=== PATIENT | female | born 1975 | race Caucasian/White ===

== ENCOUNTER 2017-01-16 07:01 | Inpatient (IN) ==
[2017-01-16] MEDS ORDERED: 0.9 % Sodium Chloride 1,000 ML IVC ONE (07:49)
--- NOTE | 2017-01-16 08:05 | Emergency Department Note ---
Disposition Clinical Impression: Dysfunctional uterine bleeding, Vaginal bleeding Anemia Qualifiers: Anemia type: other cause Other causes of anemia: acute posthemorrhagic Qualified Code(s): D62 - Acute posthemorrhagic anemia Uterine fibroid Qualifiers: Uterine leiomyoma location: unspecified location Qualified Code(s): D25.9 - Leiomyoma of uterus, unspecified Disposition: Admitted As Inpatient Condition: Fair Referrals: Rebel Stoner DO [Family Provider] - Forms: ED Satisfaction Letter Female Urogenital HPI - General Chief complaint: ED Vaginal Bleeding Stated complaint: Weak, period isn't normal Time Seen by Provider: 01/16/17 07:13 Source: patient, EMS Mode of arrival: EMS Limitations: no limitations Nursing Notes Reviewed: Yes Vital Signs Reviewed: Yes - History of Present Illness Pt Subjective Complaint: vaginal bleeding ("Heavy for 11 days"), other (" Feeling weak all over since last night") Onset (ago): day(s) (11) Location: other (no pain) Radiation: non-radiating Severity: none Severity scale (1-10): 0 Improves with: none Worsens with: none Urinary Symptoms: no dysuria, no urgency, no frequency, no hematuria, no foul smelling urine, no difficulty urinating, no flank pain Vaginal discharge: blood, dark blood, blood clots Sexual activity: no : no Associated symptoms: Reports: abnormal vaginal bleeding, weakness. Denies: abdominal pain, nausea/vomiting, fever/chills, headaches, loss of appetite, , rash, seizure, shortness of breath, syncope - Related Data Home Medications Medication Instructions Recorded Confirmed Montelukast [Singulair] 10 mg PO DAILY 01/16/17 01/16/17 methIMAzole [Tapazole] 5 mg PO TID 01/16/17 01/16/17 Allergies Allergy/AdvReac Type Severity Reaction Status Date / Time No Known Allergies Allergy Verified 01/16/17 07:02 All systems ED: reviewed and negative except as stated. Review of Systems: As Per HPI Constitutional: Reports: as per HPI, weakness. Denies: fever, chills Eyes: Denies: vision change Cardiovascular: Denies: chest pain, palpitations, dyspnea on exertion, orthopnea , edema, syncope Respiratory: Denies: dyspnea Gastrointestinal: Denies: abdominal pain, nausea, vomiting, diarrhea, constipation Genitourinary: Denies: urgency, dysuria, frequency, hematuria Musculoskeletal: Denies: back pain Integumentary: Denies: rash Neurological: Denies: headache, weakness, numbness, paresthesias, confusion, abnormal gait, vertigo Endocrine: Reports: as per HPI, fatigue Hematological/Lymphatic: Denies: easy bleeding, easy bruising Past Medical History - Past Medical History Attestation: Yes The following information was validated with the patient. 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 Absent: scleral icterus, conjunctival injection, nystagmus, miosis, mydriasis, periorbital swelling - ENT ENT exam: normal exam, normal oropharynx, mucous membranes moist - Neck Neck exam: Present: normal inspection, full ROM, trachea midline. Absent: meningismus - Chest Chest inspection: Present: normal inspection - Respiratory Respiratory exam: Present: normal lung sounds bilaterally. Absent: respiratory distress, wheezes, stridor - Cardiovascular Cardiovascular exam: Present: normal rhythm, tachycardia, normal heart sounds - Abdominal Exam Abdominal exam: Present: soft, Non-Tender. Absent: distention, guarding, rebound, mass - Female Supervisor Landscape present during exam: Yes - Extremities Exam Extremities exam: Present: normal inspection. Absent: pedal edema - Back Exam Back exam: Present: normal inspection - Neurological Exam Neurological exam: Present: alert, oriented X3, CN II-XII intact - Psychiatric Psychiatric exam: Present: normal affect, normal mood - Skin Skin exam: Present: warm, dry, intact, normal color Course Course Narrative: Patient presents by squad for evaluation of generalized weakness and heavy vaginal bleeding for the past 11 days. She has not had menorrhagia in the past. She denies . She denies trauma or recent sexual activity. She has no pain and denies dizziness, lightheadedness, vertigo, syncope. She also denies chest pain, shortness of breath or dyspnea on exertion. She has been passing large clots and has had both dark red and bright red vaginal bleeding. Her only pelvic surgery was a bilateral tubal ligation several years ago. Labs have been ordered including a type and screen, IV fluids have also been ordered. Patient's current blood pressure is 129/80. Pelvic exam will be done once the IV is established. Vitals stable, patient with no complaints. Labs show anemia with H&H of six and 19. Two units of PRBCs have been ordered. Pelvic exam - a few quarter sized clots, and small amount of active bleeding. No sign of trauma. PLAYERS CLUB REPRESENTATIVE paged. Patient was able to go to ultrasound before the blood was ready. She is stable with a normal blood pressure and is not tachycardic. Patient has returned from ultrasound. The blood is now ready, transfusion will begin. Once the results of the ultrasound are available, Dr. Lei will be paged, as previously discussed. Dr. Lei has been paged. We are waiting to hear back from him. - Consultations Consultation #1: Case discussed with nurse independent living advisor Velvet Dale. She will confer with Dr. Lei and call us back. The nurse independent living advisor states that Dr. Lei. Once the patient to have a pelvic ultrasound done and then he would like a call back once this has been resulted. Order was placed in ultrasound was called to confirm it was the correct order. Also, to explain to them that the patient needs to remain nothing by mouth and this may result in her not having a full bladder. Time: 09:00 Consultation #2: Case discussed with Dr. Lei. He reviewed the U/S and lab findings, agrees with the PRBC infusion and will admit the patient. Time: 11:31 Vital Signs Temperature 98.2 F 01/16/17 07:03 Pulse Rate 110 01/16/17 07:03 Respiratory Rate 12 01/16/17 07:03 Blood Pressure 130/85 01/16/17 07:03 O2 Sat by Pulse Oximetry 100 01/16/17 07:03 Temperature 98.2 F 01/16/17 07:03 Pulse Rate 90 01/16/17 10:57 Respiratory Rate 14 01/16/17 10:57 Blood Pressure 106/71 01/16/17 10:57 O2 Sat by Pulse Oximetry 97 01/16/17 10:57 Oxygen Delivery Oxygen Delivery Room Air Urogenital-Female - Lab Data Result diagrams: 01/16/17 08:03 01/16/17 08:03 Lab Results 01/16/17 01/16/17 01/16/17 Range/Units 08:03 08:03 08:03 WBC 5.1 (4.3-11.1) K/mcL RBC 2.37 L (3.82-4.97) M/mcL Hgb 6.1 L (11.5-15.4) g/dL Hct 19.1 L (35.3-44.9) % MCV 80.6 L (83.0-100.0) fL MCH 25.7 L (28.0-33.3) pg MCHC 31.9 (31.6-35.5) g/dL RDW 12.8 (11.5-14.5) % Plt Count 339 (140-400) K/mcL MPV 9.6 (9.4-12.4) fL Immature Gran % 0.2 (0-4) % Seg Neutrophils % 75.9 % Lymphocytes % 17.6 % Monocytes % 5.1 % Eosinophils % 1.2 % Basophils % 0.0 % Neutrophils # 3.9 (1.6-8.9) K/mcL Lymphocytes # 0.9 (0.6-4.6) K/mcL Monocytes # 0.3 (0.0-1.3) K/mcL Eosinophils # 0.1 (0.0-0.6) K/mcL Basophils # 0.0 (0.0-0.2) K/mcL PT 11.7 (9.4-12.1) Seconds INR 1.1 APTT 26.6 (26.0-36.0) Seconds Sodium 136 (136-145) mEq/L Potassium 3.8 (3.5-4.5) mEq/L Chloride 106 (98-109) mEq/L Carbon Dioxide 23 (19-29) mEq/L BUN 8 (7-20) mg/dL Creatinine 0.59 (0.57-1.11) mg/dL Est GFR ( Amer) > 60 (> 60) Est GFR (Non-Af Amer) > 60 (> 60) BUN/Creatinine Ratio 14 (6-26) Glucose 96 (70-99) mg/dL Calculated Osmolality 280 (280-300) Calcium 8.2 L (8.6-10.8) mg/dL Serum , Qual (Negative) Blood Type Antibody Screen Crossmatch 01/16/17 01/16/17 Range/Units 08:03 08:03 WBC (4.3-11.1) K/mcL RBC (3.82-4.97) M/mcL Hgb (11.5-15.4) g/dL Hct (35.3-44.9) % MCV (83.0-100.0) fL MCH (28.0-33.3) pg MCHC (31.6-35.5) g/dL RDW (11.5-14.5) % Plt Count (140-400) K/mcL MPV (9.4-12.4) fL Immature Gran % (0-4) % Seg Neutrophils % % Lymphocytes % % Monocytes % % Eosinophils % % Basophils % % Neutrophils # (1.6-8.9) K/mcL Lymphocytes # (0.6-4.6) K/mcL Monocytes # (0.0-1.3) K/mcL Eosinophils # (0.0-0.6) K/mcL Basophils # (0.0-0.2) K/mcL PT (9.4-12.1) Seconds INR APTT (26.0-36.0) Seconds Sodium (136-145) mEq/L Potassium (3.5-4.5) mEq/L Chloride (98-109) mEq/L Carbon Dioxide (19-29) mEq/L BUN (7-20) mg/dL Creatinine (0.57-1.11) mg/dL Est GFR ( Amer) (> 60) Est GFR (Non-Af Amer) (> 60) BUN/Creatinine Ratio (6-26) Glucose (70-99) mg/dL Calculated Osmolality (280-300) Calcium (8.6-10.8) mg/dL Serum , Qual Negative (Negative) Blood Type A POSITIVE Antibody Screen NEGATIVE Crossmatch See Detail
[2017-01-16 08:09] LABS: Eosinophils # 0.1 K/mcL (0.0-0.6); Eosinophils % 1.2 %; Hematocrit 19.1 % (35.3-44.9); Immature Granulocytes % 0.2 % (0-4); Lymphocytes # 0.9 K/mcL (0.6-4.6); Lymphocytes % 17.6 %; Mean Corpuscular HGB Conc 31.9 g/dL (31.6-35.5); Mean Corpuscular Hemoglobin 25.7 pg (28.0-33.3); Mean Corpuscular Volume 80.6 fL (83.0-100.0); Mean Platelet Volume 9.6 fL (9.4-12.4); Monocytes # 0.3 K/mcL (0.0-1.3); Monocytes % 5.1 %; Neutrophils # 3.9 K/mcL (1.6-8.9); Platelet Count 339 K/mcL (140-400); Red Blood Count 2.37 M/mcL (3.82-4.97); Red Cell Distribution Width 12.8 % (11.5-14.5); Segmented Neutrophils % 75.9 %
[2017-01-16 08:22] LABS: BUN/Creatinine Ratio 14 (6-26); Blood Urea Nitrogen 8 mg/dL (7-20); Calcium 8.2 mg/dL (8.6-10.8); Carbon Dioxide 23 mEq/L (19-29); Chloride 106 mEq/L (98-109); Glucose 96 mg/dL (70-99); Osmolality,Calculated 280 (280-300); Potassium 3.8 mEq/L (3.5-4.5); Sodium 136 mEq/L (136-145); eGFR For African Americans > 60 (> 60); eGFR For Non-African Americans > 60 (> 60)
[2017-01-16 08:23] LABS: INR 1.1; Prothrombin Time 11.7 Seconds (9.4-12.1)
[2017-01-16 08:25] LABS: Hemoglobin 6.1 g/dL (11.5-15.4)
[2017-01-16 08:26] LABS: Activated Partial Thrombo Time 26.6 Seconds (26.0-36.0)
--- NOTE | 2017-01-16 09:20 | Emergency Department Note ---
Disposition Clinical Impression: Dysfunctional uterine bleeding, Vaginal bleeding Anemia Qualifiers: Anemia type: other cause Other causes of anemia: other cause, not classified Qualified Code(s): D64.89 - Other specified anemias Disposition: Admitted As Inpatient Condition: Fair Referrals: Rebel Stoner DO [Family Provider] - Forms: ED Satisfaction Letter General Adult HPI - General Chief complaint: ED Vaginal Bleeding Stated complaint: Weak, period isn't normal Time Seen by Provider: 01/16/17 07:13 Source: patient, EMS Mode of arrival: EMS Limitations: no limitations Nursing Notes Reviewed: Yes Vital Signs Reviewed: Yes - History of Present Illness Pain Scale: 0 - Related Data Allergies Allergy/AdvReac Type Severity Reaction Status Date / Time No Known Allergies Allergy Verified 01/16/17 07:02 Constitutional: Reports: as per HPI, weakness. Denies: fever, chills Eyes: Denies: vision change Cardiovascular: Denies: chest pain, palpitations, dyspnea on exertion, orthopnea , edema, syncope Respiratory: Denies: dyspnea Gastrointestinal: Denies: abdominal pain, nausea, vomiting, diarrhea, constipation Genitourinary: Denies: urgency, dysuria, frequency, hematuria Musculoskeletal: Denies: back pain Integumentary: Denies: rash Neurological: Denies: headache, weakness, numbness, paresthesias, confusion, abnormal gait, vertigo Endocrine: Reports: as per HPI, fatigue Hematological/Lymphatic: Denies: easy bleeding, easy bruising Past Medical History - Past Medical History Medical history: Reports: thyroid disease Surgical history: Reports: other ("Some kind of surgery on my ureters and bladder when I was a kid") 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 - Social History Smoking Status: Never smoker Smokeless Tobacco Status: No Alcohol use: Reports: none Drug use: Reports: none Physical Exam - General Limitations: no limitations General appearance: alert, in no apparent distress Course Vital Signs Temperature 98.2 F 01/16/17 07:03 Pulse Rate 110 01/16/17 07:03 Respiratory Rate 12 01/16/17 07:03 Blood Pressure 130/85 01/16/17 07:03 O2 Sat by Pulse Oximetry 100 01/16/17 07:03 Temperature 98.2 F 01/16/17 07:03 Pulse Rate 89 01/16/17 08:57 Respiratory Rate 16 01/16/17 08:57 Blood Pressure 125/74 01/16/17 08:57 O2 Sat by Pulse Oximetry 100 01/16/17 08:57 Oxygen Delivery Oxygen Delivery Room Air Medical Decision Making - MDM Narrative Medical decision making narrative: I examined this patient and my medical decision-making was reviewed with the Resident Physician. I agree with the documented findings, disposition and treatment plan as described except to the extent set forth below. Patient seen and evaluated by Briseyda Ramey and myself, I agree with her evaluation and management plan, I supervised care of the patient's stay. Patient has dysfunctional uterine bleeding going on for 8 days. She is pale, she feels weak. On her workup. Hemoglobin was 6. Return to transfuse her speak with OB/ DATA MANAGEMENT ANALYST for admission. She is in agreement with this plan. Please see Briseyda Ramey is chart for further evaluation and dictation. Patient's agreement to this plan. - Lab Data Result diagrams: 01/16/17 08:03 01/16/17 08:03 Lab Results 01/16/17 01/16/17 01/16/17 Range/Units 08:03 08:03 08:03 WBC 5.1 (4.3-11.1) K/mcL RBC 2.37 L (3.82-4.97) M/mcL Hgb 6.1 L (11.5-15.4) g/dL Hct 19.1 L (35.3-44.9) % MCV 80.6 L (83.0-100.0) fL MCH 25.7 L (28.0-33.3) pg MCHC 31.9 (31.6-35.5) g/dL RDW 12.8 (11.5-14.5) % Plt Count 339 (140-400) K/mcL MPV 9.6 (9.4-12.4) fL Immature Gran % 0.2 (0-4) % Seg Neutrophils % 75.9 % Lymphocytes % 17.6 % Monocytes % 5.1 % Eosinophils % 1.2 % Basophils % 0.0 % Neutrophils # 3.9 (1.6-8.9) K/mcL Lymphocytes # 0.9 (0.6-4.6) K/mcL Monocytes # 0.3 (0.0-1.3) K/mcL Eosinophils # 0.1 (0.0-0.6) K/mcL Basophils # 0.0 (0.0-0.2) K/mcL PT 11.7 (9.4-12.1) Seconds INR 1.1 APTT 26.6 (26.0-36.0) Seconds Sodium 136 (136-145) mEq/L Potassium 3.8 (3.5-4.5) mEq/L Chloride 106 (98-109) mEq/L Carbon Dioxide 23 (19-29) mEq/L BUN 8 (7-20) mg/dL Creatinine 0.59 (0.57-1.11) mg/dL Est GFR ( Amer) > 60 (> 60) Est GFR (Non-Af Amer) > 60 (> 60) BUN/Creatinine Ratio 14 (6-26) Glucose 96 (70-99) mg/dL Calculated Osmolality 280 (280-300) Calcium 8.2 L (8.6-10.8) mg/dL Serum , Qual (Negative) Blood Type Antibody Screen Crossmatch 01/16/17 01/16/17 Range/Units 08:03 08:03 WBC (4.3-11.1) K/mcL RBC (3.82-4.97) M/mcL Hgb (11.5-15.4) g/dL Hct (35.3-44.9) % MCV (83.0-100.0) fL MCH (28.0-33.3) pg MCHC (31.6-35.5) g/dL RDW (11.5-14.5) % Plt Count (140-400) K/mcL MPV (9.4-12.4) fL Immature Gran % (0-4) % Seg Neutrophils % % Lymphocytes % % Monocytes % % Eosinophils % % Basophils % % Neutrophils # (1.6-8.9) K/mcL Lymphocytes # (0.6-4.6) K/mcL Monocytes # (0.0-1.3) K/mcL Eosinophils # (0.0-0.6) K/mcL Basophils # (0.0-0.2) K/mcL PT (9.4-12.1) Seconds INR APTT (26.0-36.0) Seconds Sodium (136-145) mEq/L Potassium (3.5-4.5) mEq/L Chloride (98-109) mEq/L Carbon Dioxide (19-29) mEq/L BUN (7-20) mg/dL Creatinine (0.57-1.11) mg/dL Est GFR ( Amer) (> 60) Est GFR (Non-Af Amer) (> 60) BUN/Creatinine Ratio (6-26) Glucose (70-99) mg/dL Calculated Osmolality (280-300) Calcium (8.6-10.8) mg/dL Serum , Qual Negative (Negative) Blood Type A POSITIVE Antibody Screen NEGATIVE Crossmatch See Detail
[2017-01-16] MEDS ORDERED: 0.9 % Sodium Chloride 250 ML ONE (11:10)
[2017-01-16] MEDS ORDERED: 0.9 % Sodium Chloride 2,000 ML ONE (13:45)
[2017-01-16] MEDS ORDERED: Acetaminophen 650 MG RECTAL SUPP RC PRN (13:45)
[2017-01-16] MEDS: methIMAzole 5 MG TABLET PO SCH (14:12)
--- NOTE | 2017-01-16 14:32 | OB/GYN History & Physical ---
Date of Encounter: 01/16/17 Time of Encounter: 14:28 Assessment and Plan (1) Dysfunctional uterine bleeding Current visit: Yes Status: Acute Patient admitted to the hospital with a hemoglobin of 6.1, tachycardia, pallor, and severe weakness and fatigue. On physical exam, patient has an appreciable systolic ejection murmur consistent with profound anemia. -25 mg of conjugated Estrogens -Transfusion of 4 units of RBC -IV 40 mg lasix to be given after the first unit is tranfused. -Patient's with clear breath sounds and no pedal edema. No history of adverse reactions to transfusions. We will monitor clinically for signs or symptoms of adverse reactions or fluid overload. (2) Vaginal bleeding Current visit: Yes Status: Acute -Patient receiving Premarin (3) Anemia Current visit: Yes Status: Acute As above, patient is being transfused with 4 units of packed red blood cells. -Repeat CBC after transfusion. Qualifiers: Anemia type: unspecified type Qualified Code(s): D64.9 - Anemia, unspecified (4) Uterine fibroid Current visit: Yes Status: Acute Patient with submucosal fibroids, likely cause of her heavy vaginal bleeding. -We will consider treatment after patient is hemodynamically stable. Qualifiers: Uterine leiomyoma location: submucous Qualified Code(s): D25.0 - Submucous leiomyoma of uterus History of Present Illness Chief complaint: menorrhagia HPI: Ms. Vargas is a 41 year old female with past medical history of hyperthyroidism and seasonal allergies. She presented to the emergency department prior to arrival complaining of fatigue, weakness, and a heavy menses. According to the patient, she states she has been having 4 cups full of clots daily for the past 11 days. Patient reports shortness of breath when climbing the stairs. Patient states that her menstrual periods have been regular in the past, however, over the past several months she has noted she has been getting her menstrual period sooner than expected. She states she believes she has a menstrual period every 3 weeks. She denies ever bleeding this heavily in the past. Patient has never had a blood transfusion. She denies any dysuria, hematuria, or hematochezia. She denies any abdominal pain, nausea, or vomiting. She denies headaches, visual disturbances, or loss of consciousness. Agree with the above note Miles Lei Past Med Surg Social Fam HX - Past Medical History Attestation: Yes The following information was validated with the patient. Medical history: thyroid disease (Hyperthyroidism) - Past Surgical History Surgical History: other (Bilateral tubal ligation, and ureteral reflux surgery as a child) - Social History Smoking Status: Never smoker Smokeless Tobacco Status: No Alcohol use: none Drug use: none Obstetrical History - Pregnancies : 2 Para: 2 Term: 2 : 0 Ab's: 0 Livin Medications and Allergies Montelukast [Singulair] 10 mg PO DAILY 01/16/17 [History] methIMAzole [Tapazole] 5 mg PO TID 01/16/17 [History] 3 Allergy/AdvReac Type Severity Reaction Status Date / Time No Known Allergies Allergy Verified 01/16/17 07:02 Review of System OB All systems PM: reviewed and no additional remarkable complaints except as stated - Constitutional Constitutional ROS IM: fatigue, lethargy, weakness, no anorexia, no chills, no fever(s), no weight gain, no weight loss - Cardiovascular Cardiovascular: dyspnea on exertion, lightheadedness, rapid heart rate, no chest pain, no chest pain with activity, no claudication, no irregular heart rhythm, no leg edema, no orthopnea, no palpitations, no pedal edema - Respiratory Respiratory: dyspnea on exertion (Shortness of breath while climbing the stairs. No orthopnea.), no cough, no dyspnea - Genitourinary Genitourinary: abnormal vaginal bleeding - Menstruation Menstruation: period heavy, other (Periods every 3-4 weeks.) - Integumentary Integumentary: other (Patient's skin is pale, dry and intact.) Exam - Vital Signs Vital signs: Initial Vital Signs Temp Pulse Resp BP Pulse Ox 98.2 F 110 12 130/85 100 01/16/17 07:03 01/16/17 07:03 01/16/17 07:03 01/16/17 07:03 01/16/17 07:03 - Constitutional Constitutional: well developed, well nourished, other (Pallor) - HEENT HEENT: Pallor, EOMI, PERRL - Lungs Respiratory exam: CTAB - Cardiovascular Cardiovascular exam: +S1, +S2, systolic murmur (Systolic ejection murmur best heard over the left lower sternal border), tachycardia - Abdomen Abdomen: Present: bowel sounds normal. Absent: gravid, non tender, guarding noted, mass - Extremities Extremities exam: normal capillary refill, radial pulses palpable and symmetrical (1+ pedal edema bilaterally. No calf tenderness.) Results Result Diagrams: 01/16/17 08:03 01/16/17 08:03 Abnormal lab results RBC 2.37 M/mcL (3.82-4.97) L 01/16/17 08:03 Hgb 6.1 g/dL (11.5-15.4) L 01/16/17 08:03 Hct 19.1 % (35.3-44.9) L 01/16/17 08:03 MCV 80.6 fL (83.0-100.0) L 01/16/17 08:03 MCH 25.7 pg (28.0-33.3) L 01/16/17 08:03 Calcium 8.2 mg/dL (8.6-10.8) L 01/16/17 08:03 All other labs normal. - Attending Attestation I examined this patient and my medical decision-making was reviewed with the Resident Physician. I agree with the documented findings, disposition and treatment plan as described except to the extent set forth below.
[2017-01-16] MEDS ORDERED: Furosemide 40 MG/4 ML VIAL IVP ONE ×2 (14:48→16:22)
[2017-01-16 20:09] LABS: Hematocrit 31.2 % (35.3-44.9)
[2017-01-16 20:11] LABS: Hemoglobin 10.5 g/dL (11.5-15.4)
--- NOTE | 2017-01-17 07:23 | Discharge Summary ---
Date of Encounter: 01/17/17 Time of Encounter: 12:20 - Discharge Diagnosis (1) Dysfunctional uterine bleeding Priority: Primary Status: Acute (2) Vaginal bleeding Priority: Secondary Status: Acute (3) Anemia Priority: Primary Status: Acute Qualifiers: Anemia type: other cause Other causes of anemia: other cause, not classified Qualified Code(s): D64.89 - Other specified anemias (4) Uterine fibroid Priority: Primary Status: Acute Qualifiers: Uterine leiomyoma location: intramural and submucous Qualified Code(s): D25.1 - Intramural leiomyoma of uterus; D25.0 - Submucous leiomyoma of uterus; D25.0 - Submucous leiomyoma of uterus - Discharge Medications Home Medications: Montelukast [Singulair] 10 mg PO DAILY 01/16/17 [History] methIMAzole [Tapazole] 5 mg PO TID 01/16/17 [History] Allergies/Adverse Reactions: 3 Allergy/AdvReac Type Severity Reaction Status Date / Time No Known Allergies Allergy Verified 01/16/17 07:02 Data Procedures and tests throughout hospitalization: Laboratory Tests 01/16/17 20:00 Hgb 10.5 L D Hct 31.2 L Labs on day of discharge: Labs from last 24 hours 01/16/17 20:00 Hgb 10.5 L D Hct 31.2 L Date of admission: 01/16/17 17:21 Primary care physician: LEANNA Mccloud Discharging clinician: Martin Lei Anticipated date of discharge: 01/17/17 - Patient Status Disposition: Home, Self-Care Condition: Good Functional capacity at discharge: independent ambulation Overall status at discharge: patient is progressing back to baseline - Discharge Instructions Follow Up With: Martha Saunders CNP [Primary Care Provider] - Rebel Stoner DO [Family Provider] - Martin Lei DO [Partnered Physician] - - Diet and Activity Activity: increase activity as tolerated Diet: advance to your usual diet 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 Patient states she was changing a pad every 30 minutes large clots. She states prior to this she was having regular periods every 3 week upon arrival to the emergency room she was noted to be actively bleeding with a hemoglobin of 6.1. Pelvic ultrasound performed on the patient did show an enlarged uterus with multiple fibroids both intramural and submucosal. Patient was admitted and immediately started on a transfusion. Patient was given IV Premarin 25 mg IV piggyback on admission and patient's bleeding had stopped. After 3 units of blood patient's hemoglobin was up at 10.4 and patient was feeling much better. Patient was having no bleeding and she was observed through the night. The next morning patient did start bleeding again passing large clots megestrol 40 mg by mouth was given 1 which did seem to slow down bleeding. Patient was observed for another 4-5 hours no significant bleeding noted and she was discharged home. She will be discharged home with megestrol 40 mg twice a day and has an appointment first part of next week for follow-up and to discuss surgery. Patient condition at the time of discharge was stable Time Attestation: Total time spent providing and/or coordinating discharge services: Exam - Constitutional Vitals: Temp Pulse Resp BP Pulse Ox 97.8 F 87 14 133/85 100 01/16/17 20:00 01/16/17 20:00 01/16/17 20:00 01/16/17 20:00 01/16/17 20:00 General appearance IM: A&O X 3, pleasant, no acute distress - Respiratory Respiratory exam: Present: CTAB - Cardiovascular Cardiovascular exam IM: Present: RRR - GI/Abdominal GI/Abdominal exam IM: normal bowel sounds - Rectal Rectal exam: deferred (recent bleeding noted with blood on perineum)
[2017-01-17 07:52] VITALS: BP 114/77
[2017-01-17] MEDS: methIMAzole 5 MG TABLET PO SCH (10:48)
== END 2017-01-17 13:32 | disposition home or self-care (01) | DRG 761 ==
LOC: EMEROO 07:01 → 1NENUOBS 07:01
PROVIDERS: ADMIT Obstetrics & Gynecology; ATTEND Obstetrics & Gynecology